=== PATIENT | male | born 1995 | race Caucasian/White ===

== ENCOUNTER 2019-03-31 07:30 | Outpatient (RCR) | payer OTHER, SELFPAY ==
--- NOTE | 2019-03-19 14:33 | OT.OP.EVAL ---
Visit Care Team Role Provider Type Da Johnson MD Attending Provider Non-Staff Primary Care Provider Specialty: Orthopedics Address: [address] [place] [address], [id number] Email: Occupational Therapy Initial Evaluation OT Outpatient Adult Evaluation Start: 03/17/19 12:50 Freq: Status: Active Protocol: Document 03/17/19 12:50 AMS (Rec: 03/17/19 13:14 AMS [email or web address]) General Information Visit Start Time 07:30 Visit Stop Time 08:18 Total Visit Minutes 48 Plan of Care Dates 03/17/19-06/09/19 Insurance Information Treatment Setting Outpatient Care Note Type Initial Evaluation Referring Physician Da Johnson MD Reason for Referral R radial neck fx; non-op treat . Start therapy for ROM and pain modalities. Identification Confirmed Yes: Photo ID Medical History Patient is a 23 year-old right hand dominant male referred to outpatient OT by PCP, Da Johnson MD, secondary to right radial neck fracture that occurred while mountain biking. Health History form was completed by patient; significant only for Ibuprofen for inflammation management. Previous Therapy/Therapies No Therapy Pain Assessment When Pain Assessed pre-treat Pain Present Pain Reported Right Elbow Intensity 3 Scale Used Numeric (1 - 10) Patient Questionnaires Quick Dash UE Score 29.55 Quick Dash UE Impairment 20 to 39% Impaired (Score 20- 39) Goals Objective Measurements -15 - 130 degrees active R elbow ext - flex. 0 - 80 degrees active R forearm pronation. 0 - 75 degrees active R forearm supination. Complaints of R shoulder and wrist stiffness. Treatment Recommended wearing sling at night. Recommended completing active range of motion exercises frequently throughout the day to address UE stiffness. Recommended AROM of elbow at TT w/ hold of position x 5 sec per rep ( elbow flex/ext, forearm supination/pronation) and w/ forearm supination/pronation w / elbow near extension. Recommended positioning of water bottle radially w/ AROM as tolerated. Recommended 3 sets of 10 reps throughout day . Recommended AROM of R sh ( through all planes) and wrist (through all planes w/ and without use of TT w/ focus on extension) d/t complaints of stiffness in these areas. Short Term Goals 1. -5 degrees active R elbow ext. 2. 140 degrees active R elbow flex. Detention Goals 1. Patient will be modified independent with right upper extremity home exercise program utilizing provided written and visual instructions from therapist. 2. Patient will be able to actively engage in athletic endeavors d/t reduction in pain symptoms; this will be evidenced by patient's indication of 1 or less on the Pain Assessment Grid. Assessment/Plan Patient Response Good Rehabilitation Potential Good Impairments Identified ADLs,Coordination/Dexterity, Flexibility,Functional Activities,Motor Function,Pain ,Weakness,Range of Motion, Recreational Activities, Meaningful Activities, Stiffness,Swelling,Soft Tissue Mobility,Motor Planning,Eye- Hand Coordination Treatment Assessment Patient is a 23 year-old right hand dominant male referred to outpatient OT by PCP, Da Johnson MD, secondary to right radial neck fracture that occurred while mountain biking. Health History form was completed by patient; significant only for Ibuprofen for inflammation management. PLOF: Independent w/ basic and instrumental ADLs. Patient Goals: Return to PLOF . 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 Outpatient OT is recommended to support patient's return to PLOF abilities (address pain/ discomfort, AROM, weakness). Home Exercise Program Please refer to treatment section of note for specific details. Reviewed with Patient Goals,Home Exercise Program Patient Understanding Good Comment 8 weeks (likely less d/t upcoming deployment) Treatment Frequency Once a Week Therapeutic Contents Active Range of Motion,Client Education,Functional Activities,Home Exercise Program,Joint Protection, Manual Therapy,Education, Neurodevelopment Treatment, Neuromuscular Re-Education, Self-Care,Stretching/ Flexibility Activities, Therapeutic Activities, Therapeutic Exercises, Modalities Modalities As Needed,As Prescribed Types of Modalities Contrast Bath,E-Stim, Functional Stimulation (FES), Ice Massage,T.E.N. Stimulation ,TENS Placement/Application, Ultrasound,Other Additional Types of Modalities Heat Patient Instruction Home Exercise Program,Plan of Care,Questions/Concerns
--- NOTE | 2019-03-24 15:08 | OT.OP.TRT ---
Visit Care Team Role Provider Type Da Johnson MD Attending Provider Non-Staff Primary Care Provider Specialty: Orthopedics Address: [address] [place] [address], [id number] Email: Occupational Therapy Treatment Note OT Outpatient Treatment Note - Adult Start: 03/24/19 14:49 Freq: Status: Active Protocol: Document 03/24/19 14:50 AMS (Rec: 03/24/19 15:08 AMS [id number]) OT Outpatient Adult Treatment Note Session Time Visit Start Time 13:30 Visit Stop Time 14:20 Total Visit Minutes 50 Visit Information Plan of Care Dates 03/17/19-06/09/19 Setting Treatment Setting Outpatient Care Visit Type Note Type Treatment Note General Information General Information Patient is a 23 year-old right hand dominant male referred to outpatient OT by PCP, Da Johnson MD, secondary to right radial neck fracture that occurred while mountain biking. Health History form was completed by patient; significant only for Ibuprofen for inflammation management. - Subjective Identification Type Name Identification Reconciled With Medical Record Observations I saw the doctor and he told me I don't have to wear the sling anymore per Bradley. He told me I could lift up to 5 pounds. Patient/Caregiver Compliance with Home Excellent Exercise Program - Objective Objective Measurements Full active R elbow ext. Short Term Goals 1. 140 degrees active R elbow flex. GOALS MET -5 degrees active R elbow ext. *MET 03/24/19 full active ext Structures Mechanic Goals 1. Patient will be modified independent with right upper extremity home exercise program utilizing provided written and visual instructions from therapist. 2. Patient will be able to actively engage in athletic endeavors d/t reduction in pain symptoms; this will be evidenced by patient's indication of 1 or less on the Pain Assessment Grid. - Treatment 2 Descriptor Ultrasound. 20% duty cycle. 2. 0 w/cm2 for swelling/ inflammation management. Right lateral elbow. Skin intact pre- and post- treatment. 1 Descriptor Manual mobilization of R UE to facilitate elbow flex/ext, forearm supination/pronation. Exercises 4 Descriptor HEP. Recommended the previously listed distal UE strengthening exercises for home completion. Bradley denied questions. Complexity Upgraded 3 Descriptor PROM of distal R UE Elbow flex; elbow ext Side Right 2 Descriptor Distal R UE Strengthening Forearm sup/pronation at side w/ elbow ext; forearm sup/ pronation w/ sh flex w/ elbow ext Wrist ext w/ sh flex w/ elbow ext w/ finger wire annealer Side Right Body Position Sitting Sets 1 Repetitions 10 Resistance 5# DB Complexity Upgraded 1 Descriptor Distal R UE Strengthening Wrist ext/wrist flex/wrist RD/ wrist UD Side Right Body Position Sitting Sets 2 Repetitions 10 Resistance 5# DB Complexity Upgraded - Assessment Patient Response to Treatment Excellent Rehab Potential Excellent Impairments Identified Coordination/Dexterity, Functional Activities,Pain, Weakness,Range of Motion, Recreational Activities, Meaningful Activities, Stiffness,Swelling,Soft Tissue Mobility Assessment of Overall Progress Improving Assessment of Improvement Improving pain-free active range of motion. Carry-over of HEP. No guarding observed w/ functional change in position. Progressed to 5# weight limit by surgeon; surgeon also d/c him from sling. R UE weakness d/t injury. Upgraded HEP based on observed progress. 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 Home Exercise Program Please refer to treatment section of note for specific details. Reviewed with Patient/Caregiver Goals,Progress Being Made,Home Exercise Program Patient/Caregiver Understanding Excellent - Plan Therapy Recommendations Continue with Current Program, Advance per Rehabilitation Protocol Additional Therapy Recommendations Prepare for d/c given Bradley is leaving on deployment
--- NOTE | 2019-03-31 11:45 | OT.OP.DC ---
Visit Care Team Role Provider Type Da Johnson MD Attending Provider Non-Staff Primary Care Provider Address: [address] [place] [address], [id number] Email: OT Outpatient OT Outpatient Adult Evaluation Start: 03/17/19 12:50 Freq: Status: Active Protocol: Document 03/17/19 12:50 AMS (Rec: 03/17/19 13:14 AMS [id number]) General Information Session Time Visit Start Time 07:30 Visit Stop Time 08:18 Total Visit Minutes 48 Visit Information Plan of Care Dates 03/17/19-06/09/19 Insurance Information Setting Treatment Setting Outpatient Care Visit Type Note Type Initial Evaluation Referral Referring Physician Da Johnson MD Reason for Referral R radial neck fx; non-op treat . Start therapy for ROM and pain modalities. Identification Identification Confirmed Yes: Photo ID Medical Information Medical History Patient is a 23 year-old right hand dominant male referred to outpatient OT by PCP, Da Johnson MD, secondary to right radial neck fracture that occurred while mountain biking. Health History form was completed by patient; significant only for Ibuprofen for inflammation management. Previous Therapy Previous Therapy/Therapies No Therapy Pain Assessment Pain When Pain Assessed pre-treat Pain Present Pain Present Pain Reported Location Right Elbow Intensity 3 Scale Used Numeric (1 - 10) Patient Questionnaires Quick Dash- Upper Extremity Quick Dash UE Score 29.55 Quick Dash UE Impairment 20 to 39% Impaired (Score 20- 39) Goals Objective Measurements Objective Measurements -15 - 130 degrees active R elbow ext - flex. 0 - 80 degrees active R forearm pronation. 0 - 75 degrees active R forearm supination. Complaints of R shoulder and wrist stiffness. Treatment Treatment Recommended wearing sling at night. Recommended completing active range of motion exercises frequently throughout the day to address UE stiffness. Recommended AROM of elbow at TT w/ hold of position x 5 sec per rep ( elbow flex/ext, forearm supination/pronation) and w/ forearm supination/pronation w / elbow near extension. Recommended positioning of water bottle radially w/ AROM as tolerated. Recommended 3 sets of 10 reps throughout day . Recommended AROM of R sh ( through all planes) and wrist (through all planes w/ and without use of TT w/ focus on extension) d/t complaints of stiffness in these areas. Short Term Goals Short Term Goals 1. -5 degrees active R elbow ext. 2. 140 degrees active R elbow flex. Otolaryngology Surgeon Goals Otolaryngology Surgeon Goals 1. Patient will be modified independent with right upper extremity home exercise program utilizing provided written and visual instructions from therapist. 2. Patient will be able to actively engage in athletic endeavors d/t reduction in pain symptoms; this will be evidenced by patient's indication of 1 or less on the Pain Assessment Grid. Assessment/Plan Assessment Patient Response Good Rehabilitation Potential Good Impairments Identified ADLs,Coordination/Dexterity, Flexibility,Functional Activities,Motor Function,Pain ,Weakness,Range of Motion, Recreational Activities, Meaningful Activities, Stiffness,Swelling,Soft Tissue Mobility,Motor Planning,Eye- Hand Coordination Treatment Assessment Patient is a 23 year-old right hand dominant male referred to outpatient OT by PCP, Da Johnson MD, secondary to right radial neck fracture that occurred while mountain biking. Health History form was completed by patient; significant only for Ibuprofen for inflammation management. PLOF: Independent w/ basic and instrumental ADLs. Patient Goals: Return to PLOF . 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 Outpatient OT is recommended to support patient's return to PLOF abilities (address pain/ discomfort, AROM, weakness). Home Exercise Program Please refer to treatment section of note for specific details. 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 Stimulation ,TENS Placement/Application, Ultrasound,Other Additional Types of Modalities Heat Patient Instruction Home Exercise Program,Plan of Care,Questions/Concerns Sensory Assessment Sensory Profile2 Functional Wrist/Hand Scan Hand Side OT Outpatient Treatment Note - Adult Start: 03/24/19 14:49 Freq: Status: Active Protocol: Document 03/31/19 10:08 AMS (Rec: 03/31/19 10:18 AMS [id number]) OT Outpatient Adult Treatment Note Session Time Visit Start Time 07:32 Visit Stop Time 08:18 Total Visit Minutes 46 Visit Information Plan of Care Dates 03/17/19-06/09/19 Setting Treatment Setting Outpatient Care Visit Type Note Type Treatment Note General Information General Information Patient is a 23 year-old right hand dominant male referred to outpatient OT by PCP, Da Johnson MD, secondary to right radial neck fracture that occurred while mountain biking. Health History form was completed by patient; significant only for Ibuprofen for inflammation management. - Subjective Identification Type Name Identification Reconciled With Medical Record Observations I have a follow-up appointment with the doctor next week per Bradley. It is doing a lot better than my last injury. I did my exercises 3 times last week. Patient/Caregiver Compliance with Home Excellent Exercise Program - Objective Objective Measurements Full active R elbow ext. Short Term Goals GOALS MET -5 degrees active R elbow ext. *MET 03/24/19 full active ext GOALS D/C 140 degrees active R elbow flex. 90% met; 137 degrees active elbow flex Chcf Goals GOALS MET Mod I w/ HEP. *MET 03/31/19 GOALS D/C Patient will be able to actively engage in athletic endeavors d/t reduction in pain symptoms; this will be evidenced by patient's indication of 1 or less on the Pain Assessment Grid. 03/31/19 = D/C; patient is still not full weight bearing - Treatment 2 Descriptor Ultrasound. 20% duty cycle. 2. 0 w/cm2 for swelling/ inflammation management. Right lateral elbow. Skin intact pre- and post- treatment. 1 Descriptor Manual mobilization of R UE to facilitate elbow flex/ext, forearm supination/pronation. Exercises 4 Descriptor HEP/POC. Patient going on deployment. Bradley indicated that medical staff will continue to monitor his progress. Therapist recommended active forearm supination combined w/ wrist and elbow extension at TT utilizing wash cloth to reduce friction between skin and TT. Also recommended TT ROM stretch w/ wrist ext w/ forearm pronation and contralateral stretch (elbow ext, forearm supination, combined w/ wrist extension). Discussed use of chair as another option with combined elbow ext, sh ext, forearm supination and wrist extension ; recommended utilizing trunk flexion to increase/reduce amount of stretch. Also recommended use of doorway to stretch anterior part of shoulder given patient landed on sh as well during injury. Bradley denied questions and/ or need for visual and/or written instructions. Complexity Upgraded 3 Descriptor PROM of distal R UE Elbow flex; elbow ext Side Right 2 Descriptor Distal R UE Strengthening Forearm sup/pronation at side w/ elbow ext; forearm sup/ pronation w/ sh flex w/ elbow ext Wrist ext w/ sh flex w/ elbow ext w/ finger senior logistics manager Side Right Body Position Sitting Sets 1 Repetitions 10 Resistance 5# DB Complexity Upgraded 1 Descriptor Distal R UE Strengthening Wrist ext/wrist flex/wrist RD/ wrist UD Side Right Body Position Sitting Sets 2 Repetitions 10 Resistance 5# DB Complexity Upgraded - Assessment Patient Response to Treatment Good Rehab Potential Excellent Impairments Identified Coordination/Dexterity, Functional Activities,Pain, Weakness,Range of Motion, Recreational Activities, Meaningful Activities, Stiffness,Swelling,Soft Tissue Mobility Assessment of Improvement Improving pain-free range of motion of R UE. Complaints of pain/discomfort of R lateral elbow primarily w/ combined elbow ext, forearm supination, and wrist extension. Discussed importance of addressing stiffness w/ ROM/ stretches given tendency towards forearm pronation. Soreness of anterior R sh likely d/t fall at time of injury. Instructed in exercises on this date to complete to address areas of concern. (+) compliance w/ home exercise program. Will have follow-up appointment w/ doctor pre-deployment and reports that medical staff will be available during deploment. Recommended continued execution of UE exercises in conjunction w/ exercises instructed in on this treatment date until surgeon clears for full weight bearing. D/C to HEP at this time given patient is deploying. Home Exercise Program Please refer to treatment section of note for specific details. Reviewed with Patient/Caregiver Goals,Progress Being Made,Home Exercise Program Patient/Caregiver Understanding Excellent - Plan Therapy Recommendations Discharge to Home Exercise Program,Discharge from Occupational Therapy
== END 2019-04-16 11:45 | disposition home or self-care (01) ==
LOC: OT 07:30
PROVIDERS: PCP Orthopaedic Surgery; Visit Provider Orthopaedic Surgery
DX: S52.133A Displaced fracture of neck of unspecified radius, initial encounter for closed fracture (principal)
CPT/HCPCS: 97035; 97110; 97140; 97165

== ENCOUNTER 2020-10-07 12:42 | Emergency (ER) | payer OTHER, SELFPAY ==
[2020-10-07 12:49] VITALS: BP 148/85; PULSE 98; RESP 15; TEMP 37.2; O2SAT 97; BMI 24.3
--- NOTE | 2020-10-07 15:11 | ED.WOUNDLAC ---
HPI - Wound/Laceration General Chief Complaint: Wound/Laceration Stated Complaint: Thinks Needs Stitches In Right Sarkar Time Seen by Provider: 10/07/20 15:10 Source: patient Mode of arrival: Ambulatory Limitations: no limitations History of Present Illness HPI narrative: Patient is a 25-year-old male who presents with sarkar injury after mountain biking. He says his pedal which has spikes came up and hit him in the sarkar. He is concerned might need stitches every time he walks it bleeds. Immunizations are up to date Onset (ago): hour(s) Related Data Allergies Allergy/AdvReac Type Severity Reaction Status Date / Time No Known Drug Allergies Allergy Verified 10/07/20 12:51 Review of Systems Review of Systems Narrative: GENERAL: Denies chills,fever HEENT: Denies throat pain RESPIRATORY: Denies dyspnea, cough, wheezing CARDIOVASCULAR: Denies chest pain, palpitations GASTROINTESTINAL: Denies nausea, vomiting MUSCULOSKELETAL: Denies extremity pain, injury SKIN: See HPI NEUROLOGIC: Denies weakness, dizziness, headache, numbness 8 point review of systems is negative except for those stated above and HPI Patient History Medical History Patient denies medical problems Social History Smoking Status: Unknown if ever smoked Smoking Status: Unknown if ever smoked alcohol intake frequency: holidays/special occasions only Substance Use Type: does not use Exam Initial Vital Signs Initial Vital Signs: Vital Signs Temperature 99.0 F 10/07/20 12:49 Pulse Rate 98 H 10/07/20 12:49 Respiratory Rate 15 10/07/20 12:49 Blood Pressure 148/85 H 10/07/20 12:49 Pulse Oximetry 97 10/07/20 12:49 GENERAL: Well-appearing, well-nourished and in no acute distress. CARDIOVASCULAR: peripheral pulses in tact, cap refill <2 sec RESPIRATORY: No respiratory distress, speaks in full sentences without difficulty EXTREMITIES: Normal range of motion, no clubbing or edema. Neurovascularly intact NEUROLOGICAL: Cranial nerves II through XII grossly intact. Normal gait and speech. SKIN: A 2 cm full lap with adipose tissue exposed to right sarkar. Procedures Laceration Repair Laceration 1: Site: lower extremity Side (If applicable): right Size (cm): 2 Description: flap Depth: simple, single layer Local Anesthetic: lidocaine 1% Amount of anesthesia used (mL): 2 Pre-repair: wound explored Skin layer closed with: nylon Size (cm): 4-0 Number of sutures: 1 Technique: simple, interrupted Course Orders Ordered: Discontinued Medications Lidocaine HCl (Lidocaine 1% (Pf)) 2 ml SUBCUT NOW ONE Stop: 10/07/20 15:15 Last Admin: 10/07/20 15:21 Dose: 2 ml Documented by: LILIANA Vital Signs Vital signs: Vital Signs - 8 hr 10/07/20 12:49 Temperature 99.0 F Pulse Rate 98 H Respiratory Rate 15 Blood Pressure 148/85 H Pulse Oximetry 97 Discharge Plan Departure Patient Disposition: Home Clinical Impression: Laceration of leg Qualifiers: Encounter type: initial encounter Laterality: right Qualified Code(s): S81.811A - Laceration without foreign body, right lower leg, initial encounter Instructions: DI for Laceration Repair Activity Restrictions/Additional Instructions: *You have been diagnosed with right leg laceration *What to do: Have your sutures removed in about 5 days with primary care provider. Keep clean and dry home wash with soap and water may apply Neosporin 1-2 times daily *Continue to take medications as directed *Follow up with your primary care provider in 2-3 days *Return to ER if you should have redness pus or swelling or any new, worsening or concerning symptoms Referrals: Da Johnson MD [Primary Care Provider] -
[2020-10-07] MEDS: LIDOCAINE 1% (PF) 2 ML SUBCUT (15:21)
--- NOTE | 2020-10-07 15:22 | PC.NURSE ---
Wound cleaned with CHG
== END 2020-10-07 15:33 | disposition home or self-care (01) ==
PROVIDERS: Emergency Provider Emergency Medicine; PCP Orthopaedic Surgery
DX: S81.811A Laceration without foreign body, right lower leg, initial encounter (principal); W26.8XXA Contact with other sharp object(s), not elsewhere classified, initial encounter
CPT/HCPCS: 12001; 99282

== ENCOUNTER 2021-08-11 14:00 | Emergency (ER) | payer OTHER, SELFPAY ==
[2021-08-11 14:02] VITALS: BP 142/87; PULSE 92; RESP 14; TEMP 37.4; O2SAT 96; BMI 25.7
--- NOTE | 2021-08-11 14:07 | DI.RAD.S_ITS ---
PROCEDURE: XR SHOULDER RT MIN 2V INDICATIONS: fall with shoulder pain TECHNIQUE: Three views of the shoulder were acquired. COMPARISON: None. FINDINGS: Bones: No acute fractures or dislocations. No suspicious bony lesions. Visualized ribs appear intact. Soft tissues: No suspicious soft tissue calcifications. IMPRESSION: No acute osseous abnormality. If clinical suspicion and/or symptoms persist, additional imaging with repeat plain films, or advanced imaging (e.g. CT, MRI) may be helpful for further assessment. Dictated by: Pedro Aparicio M.D. on 08/11/2021 at 14:19 Approved by: Pedro Aparicio M.D. on 08/11/2021 at 14:22
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
== END 2021-08-11 14:46 | disposition home or self-care (01) ==
PROVIDERS: Emergency Provider Physician Assistant; PCP Orthopaedic Surgery
DX: M25.511 Pain in right shoulder (principal)
CPT/HCPCS: 73030; 99281; 99283

== ENCOUNTER 2021-09-07 14:18 | Emergency (ER) | payer OTHER, SELFPAY ==
[2021-09-07 14:25] VITALS: BP 127/79; PULSE 107; RESP 14; TEMP 37.3; O2SAT 97; BMI 25.1
[2021-09-07 16:00] VITALS: BP 133/80; PULSE 91; RESP 18; O2SAT 99
[2021-09-07] MEDS: TET,DIPH,PERTUSS(ACELL),VAC/PF 0.5 ML SYRINGE IM (16:02)
[2021-09-07] MEDS: LIDO 1%/SOD BICARB 8.4% (10ML) 10 ML SYRINGE INJ (16:05)
--- NOTE | 2021-09-07 16:07 | DI.RAD.S_ITS ---
PROCEDURE: XR KNEE RT 3V INDICATIONS: trauma TECHNIQUE: 3 views of the knee were acquired. COMPARISON: None. FINDINGS: Bones: No fractures or dislocations. No suspicious bony lesions. Soft tissues: No joint effusion. No suspicious soft tissue calcifications. IMPRESSION: No visualized acute fracture or dislocation. However, if clinical concern and/or pain persist, short interval imaging followup in 7-10 days is recommended, as occult injury cannot be definitively excluded. Dictated by: Pamela Villanueva M.D. on 09/07/2021 at 16:39 Approved by: Pamela Villanueva M.D. on 09/07/2021 at 16:40
[2021-09-07 16:35] VITALS: BP 128/86; PULSE 90; RESP 18; O2SAT 99
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
[2021-09-07 17:20] VITALS: BP 134/87; PULSE 90; RESP 18; O2SAT 99
[2021-09-07] MEDS: BACITRACIN OINT 0.9 GM PCKT 4 APPLIC TOP (17:22)
== END 2021-09-07 17:28 | disposition home or self-care (01) ==
PROVIDERS: Emergency Provider Nurse Practitioner Critical Care Medicine; PCP Orthopaedic Surgery
DX: S81.021A Laceration with foreign body, right knee, initial encounter (principal); V18.0XXA Pedal cycle driver injured in noncollision transport accident in nontraffic accident, initial encounter; Y93.55 Activity, bike riding; Z23 Encounter for immunization
CPT/HCPCS: 12032; 73562; 90471; 99283; 99284; 90715